=== PATIENT | female | born 1985 | race Caucasian/White ===

== ENCOUNTER → 2022-01-12 | Outpatient (CLI) | payer OTHER ==
--- NOTE | 2022-01-12 08:38 | XR ---
EXAMINATION TYPE: XR chest 2V DATE OF EXAM: 01/12/2022 8:25 AM COMPARISON: None TECHNIQUE: XR chest 2V Frontal and lateral views of the chest. CLINICAL INDICATION:Female, 36 years old with history of R06.02 SOB; FINDINGS: Lungs/Pleura: There is no evidence of pleural effusion, focal consolidation, or pneumothorax. Pulmonary vascularity: Unremarkable. Heart/mediastinum: Cardiomediastinal silhouette is unremarkable. Musculoskeletal: No acute osseous pathology. Other: Cholecystectomy clips in the right upper quadrant. IMPRESSION: No acute cardiopulmonary disease/process.
== END | disposition home or self-care (01) ==
LOC: RADXRMAIN 07:51
PROVIDERS: ATTEND Family Medicine
DX: R06.02 Shortness of breath (principal)
CPT/HCPCS: 71046

== ENCOUNTER → 2022-05-06 | Outpatient (CLI) | payer OTHER ==
--- NOTE | 2022-05-06 16:22 | NM ---
EXAMINATION TYPE: NM bone scan whole body DATE OF EXAM: 05/06/2022 COMPARISON: NONE HISTORY: 36-year-old female M79.662 Pain in Lt Lower Limb, M79.661 Pain in Rt Lower Limb TECHNIQUE: Delayed whole-body scanning was performed following the injection of 23.1 mCi Tc 99m MDP. Images acquired 3 hours post injection. FINDINGS: Mild increased tracer activity at the shoulders, sternoclavicular joints, sternomanubrial joint, ankl es, and throughout the feet. More than what is typically seen. IMPRESSION: Query premature osteoarthrosis versus some other etiology such as inflammatory arthropathy given area s of increased tracer at the shoulders, sternoclavicular joints, sternomanubrial joint, ankles, and t hroughout the feet.
== END | disposition home or self-care (01) ==
LOC: RADNMMAIN 11:33
PROVIDERS: ATTEND Family Medicine
DX: M79.662 Pain in left lower leg (principal)
CPT/HCPCS: 78306; A9503